=== PATIENT | male | born 1955 | race Caucasian/White ===

== ENCOUNTER 2024-02-29 23:51 | Inpatient (IN) | payer MEDICARE, BC, SELFPAY ==
[2024-02-29 22:14] VITALS: BP 180/98
[2024-02-29 22:30] VITALS: BMI 35.2
[2024-02-29 22:48] VITALS: BP 163/89
[2024-02-29 22:48] LABS: % Basophils 0.5 % (0-2); % Eosinophils 2.7 % (0-6); % Immature Granulocytes 0.4 % (0-0.5); % Lymphocytes 27.4 % (20.5-51.1); % Monocytes 7.1 % (1.7-9.3); % Neutrophils 61.9 % (42.2-75.2); Absolute Basophils 0.1 10^3/uL (0-0.2); Absolute Eosinophils 0.3 10^3/uL (0-0.7); Absolute Lymphocytes 2.5 10^3/uL (1.2-3.4); Absolute Monocytes 0.7 10^3/uL (0.1-0.6); Absolute Neutrophils 5.7 10^3/uL (1.4-6.5); Hematocrit 42.6 % (39.0-52.0); Hemoglobin 14.8 g/dL (13.0-18.0); Mean Corp Hgb Conc. 34.7 g/dL (33.0-37.0); Mean Corpuscular Hgb 28.8 pg (27.0-31.0); Mean Platelet Volume 9.7 fL (7.4-10.4); Nucleated Red Blood Cells % 0 % (-); Platelet Count 261 10^3/uL (130-400); Red Blood Cell Count 5.13 10^6/uL (4.70-6.10); Red Cell Dist. Width 13.8 % (11.5-14.5); White Blood Cell Count 9.3 10^3/uL (4.8-10.8)
[2024-02-29] MEDS: LOPRESSOR 5 MG IV (22:49)
--- NOTE | 2024-02-29 22:50 | ED.GENMED ---
Addendum entered and electronically signed by Nadeem Sesay DO 03/01/24 01:08:
CRITICAL CARE STATEMENT: A total of 33 minutes of critical care time was provided for this patient. This includes management of unstable vital signs, evaluation of the patient at bedside, reviewing the patient's pertinent medical records discussion
with EMS providers and patient's family in addition to discussion with consultants, review of old EKGs and review of pertinent medical records. This time with separate from time utilized to perform the aforementioned documented procedures
Original Note:
History of Present Illness
General
Chief Complaint: Chest Pain
Source: patient, records and spouse
Exam Limitations: none
Time Seen by Provider: 02/29/24 22:23
Travel History
Have you had any contact with someone who has COVID-19?: No
Do you have any symptoms of coronavirus? Fever > 100 degrees, chills, cough, shortness of breath, sore throat, loss of taste or smell, muscle aches, or headache?: No
History of Present Illness
History of Present Illness:
69-year-old male history of CAD followed by Dr. Freed accompanied by his
Last catheterization apparently had no vessels amenable for stenting had collaterals started on oral Imdur 30 mg was doing pretty well for few months and for the past month or so he had increasing chest pain and dyspnea with any exertion also at
rest, became more severe the past 2 days taking quite a bit of nitroglycerin to become chest pain-free 3 yesterday 3-4 today still having some mild pain into his shoulders he feels short of breath does have 10 pound weight gain has had leg edema not
on a diuretic
Past History
Past History
ED Past Medical History: CAD and HTN
ED Past Surgical History: Cardiac
Social History
Tobacco: Non-smoker
Alcohol: None
Drug: None
Personal:
Living: with family
Employment: Retired
Review of Systems
Review of Systems
All Other Systems: Not applicable
Constitutional: Reports weight gain; Denies fever or fatigue
EENT: Reports no symptoms
Respiratory: Reports trouble breathing
Cardiac: Reports chest pain
ABD/GI: Reports no symptoms
: Reports no symptoms
Musculoskeletal: Reports no symptoms
Skin: Reports no symptoms
Neurological: Reports no symptoms
Endocrine: Reports no symptoms
Hematologic/Lymphatic: Reports no symptoms
Phy Exam
Physical Exam
Physical Exam:
Physical Exam
General: Slightly dyspneic appearing male
Neck: No jaundice
Heart: s1/s2 regular rate and rhythm, no murmur. equal radial pulses.
Lungs: no acute respiratory distress. clear bilaterally
Abdomen: Nontender
Neuro: alert and oriented. no focal neurological deficits
Skin: no rash
Psychiatric: well kept. interactive and cooperative
Extremities: Trace edema no calf Pain
Scores
Heart Score for Chest Pain Patients
STEMI patient?: No
History: Highly Suspicious
ECG: Significant ST-Depression
Age: >/= 65 years
Risk Factors: >/= 3 Risk Factors or History of CAD
Troponin: >1 - <3 x Normal Limit
Heart Score for Chest Pain Patients: 9
Heart Score Risk: 72.7 % MACE over next 6 weeks
Course
Orders/Labs/Results
Orders:
Orders
02/29/24 22:13
Electrocardiogram (*1) Urgent
Reason for Study: Chest Pain
EKG- Treatment ONCE
02/29/24 22:43
CMP [Comprehensive Metabolic Panel] Urgent
Complete Blood Count/With Diff Urgent
NT-proBNP Urgent
Comment: ADD ON
Troponin I Urgent
02/29/24 22:45
Add On- LAB Urgent
Tests Added?: pBNP
Nitroglycerin Sublingual [Nitrostat (Sublingual)] 0.4 mg SL [id number] PRN
CR Chest Portable - 1 View Urgent
Comment:
Reason For Exam: sob
Reason Study Needs to be Portable: Patient Unstable
02/29/24 22:46
Metoprolol [Lopressor] 5 mg IV NOW STA
02/29/24 23:14
Heparin 4,000 units IV NOW STA
02/29/24 23:15
Heparin 06045 Units/250 ml 25,000 units in 250 ml IV PER PROTOCOL
Weight to be used for heparin protocol in kilograms (kg):: 107.9
Protocol:: Cardiac Tx/Acute Coronary
PTT Goal Range to be used:: PTT 73 to 111 seconds
Order type:: Initial
INITIAL Infusion Dose (UNITS/KG/hr) & then follow protocol:: 12 units/kg/hr
Infusion Dose in UNITS/hr & then follow protocol (UNITS/hr):: 1,000
INFUSION RATE in mL/hr & then follow protocol (mL/hr):: 10
PTT less than or equal to 64 seconds:: Increase rate by 200 units/hr (+ 2 mL/hr)
PTT 64.1 to 72.9 seconds:: Increase rate by 100 units/hr (+ 1 mL/hr)
PTT 73 to 111 seconds:: Target Range. No change in rate.
PTT 111.1 to 130.9 seconds:: Decrease rate by 100 units/hr (- 1 mL/hr)
PTT 131 to 199.9 seconds:: HOLD for 1 hr. Then decrease rate by 200 units/hr (- 2 mL/hr)
PTT greater than or equal to 200 seconds:: HOLD for 2 hrs & Notify Provider. Then decrease by 200 units/hr (-
2 mL/hr)
Lab follow-up:: Each change, PTT q6h until 2 consecutive are therapeutic. Then PTT
daily.
Nursing to Place Non Medication Order As Directed
Physician Order: PTT 6 hours after initial start of Heparin infusion
Above order entered?: Yes
02/29/24 23:19
PTT Urgent
Comment: Obtain baseline before beginning heparin infusion if not already collected
02/29/24 23:23
Electrocardiogram (*1) Urgent
Reason for Study: Chest Pain
EKG- Treatment ONCE
02/29/24 23:41
CARDIOLOGY CONSULT Urgent
Consulting Provider: Daniel Echavarria
Was physician already notified: Yes
02/29/24 23:45
Admit/Transfer Patient As Directed
Co-Sign Provider:
Level of Care: Inpatient admission
Assign to:: IVU
Physician / Group: alesha
Diagnosis: nstemi
Reason for Hospitalization: nstemi
Expected length of stay greater than two midnights?: Yes
ELOS- Estimated Length of Stay in days: 2
I certify the patient meets the requirements for IP care: Yes
Code Status As Directed
Resuscitation Status: Full Code
03/01/24 05:45
PTT Routine
Abnormal Lab Results
02/29/24
22:43
Absolute Monos (auto) 0.7 H 10^3/uL
(0.1-0.6)
BUN 29 H mg/dl
(9-20)
Creatinine 1.4 H mg/dL
(0.7-1.3)
Glucose 126 H mg/dl
(70-99)
Troponin I 0.137 H* ng/ml
02/29/24 22:43
02/29/24 22:43
Vital Signs
Initial and Last Documented VS:
Initial Vital Signs
Temp Pulse Resp BP
97.7 F 84 22 180/98
02/29/24 22:14 02/29/24 22:14 02/29/24 22:14 02/29/24 22:14
Last Documented Vital Signs
Temp Pulse Resp BP
97.7 F 85 14 180/98
02/29/24 22:14 02/29/24 22:34 02/29/24 22:34 02/29/24 22:14
MDM/Problems Addressed
Differential Diagnosis Includes:
ACS accelerated angina, unstable angina, non-STEMI noncardiac causes
MDM/Problems Addressed:
Chest pain
Chronic conditions affecting care: CAD
Acute Exacerbation and/or Progression of Chronic Illness: CAD
*Radiology
Radiology exam reviewed: preliminary read by ED provider
*Pulse Oximetry
Patient hypoxic: no
*EKG
Interpreted by ED Provider?: Yes
Interpretation: abnormal
Comparison EKG: changes noted
Heart Rate: 112
Rate: tachycardiac
Rhythm: sinus
Ischemia: non-specific ST changes
*Psychiatric Secretary Interpretation
Rate: normal
Interpretation: normal
Heart Rate: 110
Rhythm: sinus
*Critical Care Note
Total Time (30-74mins, 75-104mins- exclusive of procedures): 33
Update Note
Update Note:
11:20 PM troponin noted now with 4 out of 10 chest pain with start nitrates and heparin
11:45 PM chest pain-free after 3 sublingual nitro, heparin has been ordered,
11:55 PM repeat EKG noted
ED Attending Note
-
Portions of this chart may have been created with voice recognition software.� Occasional wrong word or��sound alike� substitutions may have occurred due to the inherent limitations of voice recognition software.
Discharge Plan
Departure
Patient Disposition: Admit
Date of Disposition: 02/29/24
Time of Disposition: 23:46
Admit to: IVU
Presentation/result/management discussed w/ accepting MD/DO: Hospitalist
Patient with high blood pressure during this ER visit?: Yes
Condition: Fair
Discharge Problem:
ACS (acute coronary syndrome)
Interventions
Interventions:
*Risk Screen - Suicide Last Done: 02/29/24 22:14
*General Assessment Last Done: 02/29/24 22:30
*Neglect/Abuse Screening Last Done: 02/29/24 22:14
ED- Fall Risk Assessment Last Done: 02/29/24 22:30
*ED COVID-19 Vaccine History Last Done: 02/29/24 22:30
ED- Cardiac Assessment Last Done: 02/29/24 22:30
[2024-02-29 23:00] VITALS: BP 164/85
[2024-02-29 23:08] LABS: ALT (SGPT) 31 U/L (0-50); AST (SGOT) 33 U/L (17-59); Albumin 4.5 g/dl (3.5-5.0); Alkaline Phosphatase 73 U/L (38-126); Blood Urea Nitrogen 29 mg/dl (9-20); Calcium 9.3 mg/dl (8.4-10.2); Carbon Dioxide 25 mmol/L (22-30); Chloride 106 mmol/L (98-107); Estimated Creatinine Clearance 61 ml/min; Glucose 126 mg/dl (70-99); Potassium 4.4 mmol/L (3.5-5.1); Sodium 137 mmol/L (135-145); Total Bilirubin 0.4 mg/dl (0.2-1.3); Total Protein 7.6 g/dl (6.3-8.2); eGFR 54.75
[2024-02-29 23:13] LABS: NT-proBNP 347 pg/ml; Troponin I 0.137 ng/ml
[2024-02-29] MEDS: NITROSTAT (SUBLINGUAL) 0.400000000000000022 MG SL ×3 (23:20→23:38)
[2024-02-29] MEDS: HEPARIN 4000 UNITS IV (23:24)
[2024-02-29 23:32] VITALS: BP 145/79
[2024-02-29] MEDS: HEPARIN 25000 UNITS/250 ML IV (23:33)
[2024-02-29 23:37] LABS: APTT 28.3 Sec (23.4-35.0)
--- NOTE | 2024-02-29 23:53 | HPS.HSE ---
Family Physician
-
Family Physician: Bk Ron
Chief Complaint
-
chest pain
History of Present Illness
69-year-old male with past medical history of CAD with stent in 2008, hypertension, gout, hypothyroidism, GERD, presenting with chest pain. Over the past month he has had increasing chest pain and shortness of breath primarily with exertion. Pain
has become more frequent over the past 2 days requiring multiple doses of nitroglycerin per day to resolve the chest pain. He did have 10 pound weight gain in the past few months and some slight lower extremity edema. He did have some nausea and
sweating today.
He had stent placed in 2008 and another catheterization 2 years ago with CAD not amenable to stenting at that time.
He drinks a few beers 5 times a week. He does use marijuana sometimes. He denies smoking.
Family history is unknown.
Medical History
Past Medical History
Past Medical History: Reports Other ( CAD with stent in 2008, hypertension, gout, hypothyroidism, GERD)
Past Surgical History: Reports None
Social History
Tobacco: Non-smoker
Alcohol: Daily
Drug: Marijuana
Family History
Family History: Not pertinent
Allergies / Home Medications
Allergies reflects when Allergies were last updated in [employer]
Home Medications with original date entered in [employer]
Allergy/Medication List:
Allergies
Allergy/AdvReac Type Severity Reaction Status Date / Time
No Known Allergies Allergy Verified 11/25/22 14:27
Home Medications
allopurinol 100 mg tablet 100 mg PO HS 02/29/24
amlodipine 5 mg tablet 5 mg PO HS 02/29/24
aspirin 81 mg tablet,delayed release 81 mg PO HS 02/29/24
isosorbide mononitrate 60 mg tablet,extended release 24 hr 60 mg PO HS 02/29/24
levothyroxine 50 mcg tablet 50 mcg PO DAILY 02/29/24
metoprolol succinate 25 mg tablet,extended release 24 hr 25 mg PO HS 02/29/24
omega 5-ykm-tju-fish oil 1,200 mg (144 mg-216 mg) capsule (Fish Oil) 1 cap PO HS 02/29/24
pantoprazole 40 mg tablet,delayed release 40 mg PO HS 02/29/24
rosuvastatin 40 mg tablet 40 mg PO HS 02/29/24
Review of Systems
-
History Source: Patient
A 12 point ROS was completed and negative except as noted: Yes
Constitutional: Reports No Symptoms
EENT: Reports No Symptoms
Respiratory: Reports No Symptoms
Cardiac: Reports See HPI
Abdomen/GI: Reports No Symptoms
: Reports No Symptoms
Musculoskeletal: Reports No Symptoms
Skin: Reports No Symptoms
Neurological: Reports No Symptoms
Endocrine: Reports No Symptoms
Hematologic/Lymphatic: Reports No Symptoms
Psych: Reports No Symptoms
Physical Exam
Vital Signs
Vital Signs
Temp Pulse Resp BP
97.7 F 85 14 180/98
02/29/24 22:14 02/29/24 22:34 02/29/24 22:34 02/29/24 22:14
Physical Exam
General: Well Developed, Well Nourished and No Apparent Distress
HEENT: NormoCephalic, Moist mucous membranes and Atraumatic
Respiratory: Clear
Cardiac: S1/S2 and Regular Rhythm; No Murmur or Rub
GI: Soft, Non Tender, Non Distended and Normal Bowel Sounds; No Organomegaly
Rectal: Deferred by Provider
Musculoskeletal: No Clubbing, No Cyanosis and No Edema
Skin: No Rash
Neuro: Nonfocal/grossly intact
Laboratory Results
-
02/29/24 22:43
02/29/24 22:43
Laboratory Results
APTT 28.3 Sec (23.4-35.0) 02/29/24 23:19
Total Bilirubin 0.4 mg/dl (0.2-1.3) 02/29/24 22:43
AST 33 U/L (17-59) 02/29/24 22:43
ALT 31 U/L (0-50) 02/29/24 22:43
Alkaline Phosphatase 73 U/L (38-126) 02/29/24 22:43
Troponin I 0.137 ng/ml H* 02/29/24 22:43
Data Reviewed
-
Lab Data: Labs Reviewed by me
Old Records: Reviewed
Impression/Plan
-
IMPRESSION:
PLAN:
# NSTEMI
# History of CAD with stent in 2008
-EKG shows normal sinus rhythm, incomplete left bundle branch block with repolarization abnormality, LVH,
-Troponin 0.137
-Continue to trend
-Continue aspirin
-Heparin drip
-Continue isosorbide mononitrate
-Continue metoprolol
-Continue statin
-N.p.o. for potential catheterization
-Minimal chest pain currently, if worsening chest pain then start nitro drip
-Chest x-ray appears unremarkable, report pending
-Cardiac BNP 340
-Cardiology consulted
# Acute kidney injury versus CKD
-No recent BMP available
-Suspect CKD, but try gentle IV fluids
-Continue to monitor
Essential hypertension
-Continue amlodipine
Gout
-Continue allopurinol
Hypothyroidism
-Continue levothyroxine
GERD
-Continue Protonix
Daily alcohol use
-Monitor for withdrawal
Marijuana user
Full code
DVT prophylaxis�heparin drip
N.p.o.
[2024-02-29 23:55] VITALS: BP 145/65
[2024-03-01] VITALS (28 sets, daily range): BP systolic 107–166; BP diastolic 60–101; PULSE 63–81; BMI 34.5
[2024-03-01] MEDS: MORPHINE SULFATE 4 MG IV (00:11)
[2024-03-01] MEDS: LOW STRENGTH ASPIRIN 324 MG PO (00:56)
[2024-03-01] MEDS: NITROGLYCERIN PREMIX 250 IV (00:57)
[2024-03-01] MEDS: NSS 1000 IV ×2 (02:18→11:20)
--- NOTE | 2024-03-01 02:25 | PTCARENOTE ---
Patient admitted to IVU room 2250, assisted to bed. Heparin and nitro IV infusing per MAR. Pain in chest 1 out 10, unchanged. NSR on telemetry, denies shortness of breath. VSS. NPO for possible heart cath today,call tamayo in reach
[2024-03-01 05:56] LABS: % Basophils 0.7 % (0-2); % Immature Granulocytes 0.3 % (0-0.5); % Lymphocytes 34.8 % (20.5-51.1); % Monocytes 8.3 % (1.7-9.3); % Neutrophils 52.9 % (42.2-75.2); Absolute Basophils 0.1 10^3/uL (0-0.2); Absolute Eosinophils 0.3 10^3/uL (0-0.7); Absolute Lymphocytes 3.5 10^3/uL (1.2-3.4); Absolute Monocytes 0.8 10^3/uL (0.1-0.6); Absolute Neutrophils 5.3 10^3/uL (1.4-6.5); Hematocrit 40.7 % (39.0-52.0); Hemoglobin 13.4 g/dL (13.0-18.0); Mean Corp Hgb Conc. 32.9 g/dL (33.0-37.0); Mean Corpuscular Hgb 28.2 pg (27.0-31.0); Mean Corpuscular Volume 85.5 fL (80.0-94.0); Mean Platelet Volume 10.2 fL (7.4-10.4); Nucleated Red Blood Cells % 0 % (-); Platelet Count 227 10^3/uL (130-400); Red Blood Cell Count 4.76 10^6/uL (4.70-6.10); Red Cell Dist. Width 13.7 % (11.5-14.5); White Blood Cell Count 10.1 10^3/uL (4.8-10.8)
[2024-03-01 06:31] LABS: ALT (SGPT) 29 U/L (0-50); AST (SGOT) 53 U/L (17-59); Albumin 3.9 g/dl (3.5-5.0); Alkaline Phosphatase 60 U/L (38-126); Blood Urea Nitrogen 30 mg/dl (9-20); Calcium 8.9 mg/dl (8.4-10.2); Carbon Dioxide 22 mmol/L (22-30); Chloride 106 mmol/L (98-107); Estimated Creatinine Clearance 77 ml/min; Glucose 113 mg/dl (70-99); Potassium 4.5 mmol/L (3.5-5.1); Sodium 138 mmol/L (135-145); Total Bilirubin 0.6 mg/dl (0.2-1.3); Total Protein 6.8 g/dl (6.3-8.2); eGFR > 60.00
--- NOTE | 2024-03-01 08:07 | CON.CAR ---
Consultation
Consultation Request
Date/Time Consultation Requested: February 29, 2024, 2350
Date/Time Consultation Performed: March 01, 2024, 7:15 AM
Requesting Provider: Hospitalist
Performing Provider: Daniel Echavarria
Reason for Consultation: NSTEMI
Medical History
-
Chief Complaint: Chest pain
History of Present Illness:
61-year-old male with past medical history of CAD and stenting in 2008, hypertension, gout, hypothyroidism, GERD, who is presenting today with chest pain. He tells me that over the last 3 to 4 weeks he has noticed increasing frequency of chest
pain. This has been associated with exertion or stress. It was resolved with nitroglycerin. However, over the last couple of days the chest pain has become much more frequent even at rest and is not necessarily resolved with an initial
nitroglycerin. He has associated shortness of breath. The chest pain is central in location pressure and squeezing-like substernally. Because of this he had presented to the emergency room.
In the emergency room troponin was elevated and initial ECG showed normal sinus rhythm with LVH QRS widening and repolarization. He was given aspirin and started on heparin drip and admitted to the hospitalist service.
Past Medical History
Past Medical History: Other (CAD and stenting in 2008, hypertension, gout, hypothyroidism, GERD)
Past Surgical History: None
Social History
Tobacco: Non-Smoker
Alcohol: Daily
Drug: Marijuana
Family History
Family History: Reviewed & Not Pertinent
Allergies / Home Medications
Allergy/AdvReac Type Severity Reaction Status Date / Time
No Known Allergies Allergy Verified 11/25/22 14:27
�Medication �Instructions �Recorded �Confirmed �Type
allopurinol 100 mg tablet 100 mg PO HS 02/29/24 02/29/24 History
amlodipine 5 mg tablet 5 mg PO HS 02/29/24 02/29/24 History
aspirin 81 mg tablet,delayed 81 mg PO HS 02/29/24 02/29/24 History
release
isosorbide mononitrate 60 mg 60 mg PO HS 02/29/24 02/29/24 History
tablet,extended release 24 hr
levothyroxine 50 mcg tablet 50 mcg PO DAILY 02/29/24 02/29/24 History
metoprolol succinate 25 mg 25 mg PO HS 02/29/24 02/29/24 History
tablet,extended release 24 hr
omega 6-for-ywb-fish oil 1,200 mg 1 cap PO HS 02/29/24 02/29/24 History
(144 mg-216 mg) capsule (Fish Oil)
pantoprazole 40 mg tablet,delayed 40 mg PO HS 02/29/24 02/29/24 History
release
rosuvastatin 40 mg tablet 40 mg PO HS 02/29/24 02/29/24 History
Review of Systems
-
All other systems: Negative unless noted
Physical Exam
Vital Signs
Temp Pulse Resp BP Pulse Ox
97.9 F 66 16 145/75 94
03/01/24 07:16 03/01/24 07:45 03/01/24 07:16 03/01/24 07:15 03/01/24 07:16
Lab Results
03/01/24 05:44
03/01/24 05:44
Troponin I Cancelled 03/01/24 13:34
Buu-T-[id number] Pept 347 pg/ml 02/29/24 22:43
Physical Exam
General: Well Developed and Well Nourished
HEENT: Normocephalic
Respiratory: Clear and Non Labored Respirations
Cardiac: S1/S2 and Regular Rhythm
GI: Soft, Non Tender, Non Distended and Normal Bowel Sounds
Musculoskeletal: No Clubbing, No Cyanosis and No Edema
Skin: Warm and Dry
Neuro: AO x 3
Psych: Calm
Impression / Plan
-
69-year-old male with past medical history of CAD and stenting in 2008, hypertension, gout, hypothyroidism, GERD who is here today with chest pain elevated troponin consistent with NSTEMI.
NSTEMI
-N.p.o. nitro as needed for chest pain, coronary angiography today
-Aspirin 81 mg daily already received load, heparin drip
-Continue statin
-Continue Imdur metoprolol
-Update TTE
Hypertension
-Continue amlodipine
Hypothyroidism
GERD
Gout
Daily alcohol use
Marijuana use
Data Reviewed
-
EKG: Tracing Personally Visualized and interpreted (NSR LVH )
Labs: Labs Reviewed by me
[2024-03-01] MEDS: SYNTHROID 50 MCG PO (08:37)
[2024-03-01] MEDS: ASPIR LOW (ENTERIC COATED) 81 MG PO (09:17)
--- NOTE | 2024-03-01 09:33 | PTCARENOTE ---
Assumed care of pt from night RN. Pt received lying in bed. Ox3. VSS, CM shows NSR 60-70's, POX 94% on RA. Ntg running at 25 mcg/min concurrently with Heparin which is running at 1200 units per hr through LAC. NS running at 80ml's/hr through RH.
ASA 81 mg given this am per CCL RN. Pt awaiting CCL.
[2024-03-01 10:30] LABS: ACT-LR - POC 247 Seconds (116-155)
[2024-03-01 10:40] LABS: ACT-LR - POC 289 Seconds (116-155)
--- NOTE | 2024-03-01 10:56 | ITS.CL.CATH ---
[facility] - Catheterization
Cardiac Catheterization
Procedure Report:
CARDIAC CATHETERIZATION REPORT
Date of Procedure: 03/01/2024
Referring: Daniel Echavarria MD
Indication: ACS/non-STEMI
HEMODYNAMIC DATA
AO: 135/77
LV: 135/16
LEFT VENTRICULOGRAPHY: Mild mid inferior hypokinesis with otherwise normal left ventricular wall motion with EF 58%
CORONARY ANGIOGRAPHY
Dominance: Right
Left Main: Mild luminal disease
LAD: Diffuse mild luminal disease throughout the LAD without any significant areas of focal stenosis
Circumflex: The circumflex is occluded at its origin. There is retrograde left to left collateral filling of the circumflex system to include a medium to large OM1 and a medium sized OM 2 as well as a small OM 3. The appearance of the circumflex
is unchanged compared with the prior study from 2021.
RCA: Large dominant vessel with moderate to severe calcification in the proximal, mid, and distal vessel. There is 30-40% stenosis in the mid RCA proximal to the crux. There is a high degree of angulation at the bifurcation of the large PDA and AV
groove branch which supplies a large right posterolateral system. There is a new 90% stenosis (versus 2021) in the AV groove proximal to the takeoff of the small RPL 1. The lesion has the angiographic appearance of a acute plaque rupture. The RCA
terminates with a large RPL 2 and RPL 3 branches.
Angioplasty: At the conclusion the diagnostic study we proceeded with angioplasty to treat the culprit 90% right AV groove branch stenosis. Due to the significant calcification and angulation throughout the RCA, we were prepared for marx to get a
stent all the way to the lesion. An AL 0.75 guide catheter was used to maximize backup support given the upsloping nature of the RCA. A BMW wire was advanced easily into the distal RCA but could not be manipulated into the right AV groove branch
which originated from a very acute angle. The wire was parked in the PDA both to work as a eldon wire for delivery of balloon and device through the mid to distal RCA and also to straighten the proximal RCA curve which it did nicely. A hydrophilic
whisper wire was then advanced and passed into the AV groove branch and across the lesion without significant difficulty. Angioplasty with a 2.5 x 15 trek dilated to 12 sorin was followed by placement of a 2.75 x 22 [place] CRISTI deployed at 14
sorin then postdilated with a 2.5 NC trek to 17 sorin. The final angiographic result was outstanding with no residual stenosis. There were no procedural complications.
Closure Device: None-the procedure was performed via the right radial artery. The Arya's test was normal prior to the procedure.
Radiation (mGy): 740
DAP (cm2.Gy): 44.5
Fluoroscopy time: 6.8 min
CONCLUSIONS
1: ACS/non-STEMI presentation (troponin 2)
2: Mild inferior hypokinesis with EF 58%
3. Multivessel CAD as described-the ostial circumflex occlusion is old. The culprit for his non-STEMI is a plaque rupture in the right AV groove branch proximal to the takeoff of the first right posterolateral branch.
4. Successful stenting of right AV groove branch lesion using 2.75 x 22 [place] CRISTI with outstanding final result
5. Recommend dual antiplatelet therapy for minimum 12 months and continued efforts at risk factor modification
Copy to: Noam Freed MD, Bk Ron MD
Noam Freed MD, [facility], [facility]
--- NOTE | 2024-03-01 11:32 | PTCARENOTE ---
Assumed care of pt upon tsf from CCL post stent insertion. Pt arrives awake and alert, Ox3, VSS, CM shows NSR 60's, POX 88-90, 2 liters n/c applied. Right radial site with radial band intact. CMS WNL. Protocol IV infusing at 159 ml/hr x 5 hours.
Heparin and NTG drips off. Movement restrictions reviewed with pt.
--- NOTE | 2024-03-01 14:09 | CM ---
spoke to pt in room, he is prev indep, lives with his in a 2 story home with 2 steps to enter. he denies any dc planning needs or dme's. plan is for dc to home when medically stable.
--- NOTE | 2024-03-01 14:46 | W.PN.HOSP.TC ---
Today's Communication/Plan
-
DAPT
Medical optimization
HSQ
Monitor Scr with Fluids s/p cath
ECHO
Assessment / Plan
Assessment / Plan
Physical Exam
General: Well Developed, Well Nourished and No Apparent Distress
HEENT: NormoCephalic, Moist mucous membranes and Atraumatic
Respiratory: Clear
Cardiac: S1/S2 and Regular Rhythm; No Murmur or Rub
GI: Soft, Non Tender, Non Distended and Normal Bowel Sounds; No Organomegaly
Rectal: Deferred by Provider
Musculoskeletal: No Clubbing, No Cyanosis and No Edema
Skin: No Rash
Neuro: Nonfocal/grossly intact
PLAN:
# NSTEMI
# History of CAD with stent in 2008
- culprit for his non-STEMI is a plaque rupture in the right AV groove branch proximal to the takeoff of the first right posterolateral branch.
-Successful stenting of right AV groove branch lesion
-dual antiplatelet therapy for minimum 12 months and continued efforts at risk factor modification
-Continue isosorbide mononitrate
-Continue metoprolol
-Continue statin
-F/u ECHO
--Cardiology on board
# Acute kidney injury versus CKD
-improving
-cont to monitor with fluids, jerad with C
Essential hypertension
-Continue amlodipine
Gout
-Continue allopurinol
Hypothyroidism
-Continue levothyroxine
GERD
-Continue Protonix
Daily alcohol use
-Monitor for withdrawal
Marijuana user
Full code
DVT prophylaxis�HSQ
Total time spent on today's encounter was 50 minutes which included time spent in counseling the patient/family regarding diagnosis and treatment plan as listed above, goals of care, and symptom management. Case was discussed with nursing staff,
specialists, and care coordinators/case management. All labs and imaging personally reviewed by me. Remainder the time spent in detailed review of previous records, lab data, imaging, and other medical provider documentation.
Anticipated Discharge: 24 - 48 hours
Subjective/Interval History
-
Date of Service: March 01, 2024
No acute events, planning for left heart cath today
Objective Data
-
Labs:
Laboratory Results
03/01/24 03/01/24
05:44 12:00
WBC 10.1
Hgb 13.4
Hct 40.7
Plt Count 227
APTT 38.0 H Cancelled
Sodium 138
Potassium 4.5
Chloride 106
Carbon Dioxide 22
BUN 30 H
Creatinine 1.1
Glucose 113 H
Calcium 8.9
Total Bilirubin 0.6
AST 53
ALT 29
Alkaline Phosphatase 60
Vital Signs:
Vital Signs
Temp Pulse Resp BP Pulse Ox
98.2 F 63 16 147/70 92
03/01/24 11:12 03/01/24 11:15 03/01/24 11:12 03/01/24 11:15 03/01/24 11:12
I&O
02/29/24 03/01/24 03/02/24
06:59 06:59 06:59
Intake Total 800 / 800
Balance 800 / 800
Review of Systems
-
History Source: Patient
All other systems: Not reviewed unless documented
Data Reviewed
-
Diagnostic Radiology: Image personally visualized and interpreted and Report Reviewed by me
Medical Tests (Nuc Med, Echo etc): Report Reviewed by me
Labs: Labs Reviewed by me
--- NOTE | 2024-03-01 15:40 | CARDSERVLU ---
Echocardiogram with Lumason completed after protocol screening completed. Allergies verified.
Patent IV site: __R hand___
IV site flushed with 0.9% NaCl pre and post administration.
Diluted bolus method utilized to enhance visualization of ventricular benz.
Total volume given: __2.5__ mL
Patient tolerated all procedures well without complications.
[2024-03-01] MEDS: NSS IV (15:46)
[2024-03-01] MEDS: PROTONIX 40 MG PO (22:25)
[2024-03-01] MEDS: CRESTOR 40 MG PO (22:25)
[2024-03-01] MEDS: TOPROL XL 25 MG PO (22:25)
[2024-03-01] MEDS: NORVASC 5 MG PO (22:26)
[2024-03-01] MEDS: IMDUR (EXTENDED RELEASE) 60 MG PO (22:26)
[2024-03-01] MEDS: ZYLOPRIM 100 MG PO (22:26)
--- NOTE | 2024-03-02 01:49 | PTCARENOTE ---
Pt. has no complaints of chest pain/discomfort this shift. VSS, NSR on the monitor. Right radial cath site dressing CDI with no S&S hematoma, circulation intact. Pt. currently sleeping.
[2024-03-02 03:28] VITALS: BP 120/65
[2024-03-02 03:53] LABS: Hematocrit 38.1 % (39.0-52.0); Hemoglobin 13.2 g/dL (13.0-18.0); Mean Corp Hgb Conc. 34.6 g/dL (33.0-37.0); Mean Corpuscular Hgb 28.6 pg (27.0-31.0); Mean Corpuscular Volume 82.5 fL (80.0-94.0); Mean Platelet Volume 10.1 fL (7.4-10.4); Platelet Count 214 10^3/uL (130-400); Red Blood Cell Count 4.62 10^6/uL (4.70-6.10); White Blood Cell Count 9.5 10^3/uL (4.8-10.8)
[2024-03-02 04:10] LABS: Blood Urea Nitrogen 19 mg/dl (9-20); Calcium 8.6 mg/dl (8.4-10.2); Carbon Dioxide 21 mmol/L (22-30); Chloride 109 mmol/L (98-107); Estimated Creatinine Clearance 94 ml/min; Glucose 108 mg/dl (70-99); Potassium 4.1 mmol/L (3.5-5.1); Sodium 135 mmol/L (135-145); eGFR > 60.00
[2024-03-02] MEDS: SYNTHROID 50 MCG PO (06:31)
[2024-03-02 07:39] VITALS: BP 126/50
--- NOTE | 2024-03-02 08:34 | PTCARENOTE ---
Rec'd pt AAOx3 w/no c/o CP or SOB. VS stable this AM w/HR in the upper 50's & pt SB on telemetry monitoring. Pt w/ R radial cath site w/dressing C/D/I w/no signs or symptoms of bleeding or hematoma. Pt w/call tamayo within reach & plan of care ongoing.
[2024-03-02] MEDS: PLAVIX PO (09:02)
--- NOTE | 2024-03-02 09:21 | W.PN.CD ---
Today's Communication / Plan
-
- No cath complications
- OK for home
- F/u arranged
Impression / Plan
-
69-year-old male with past medical history of CAD and stenting in 2008, hypertension, gout, hypothyroidism, GERD who is here today with chest pain elevated troponin consistent with NSTEMI.
NSTEMI, peak trop 8.4, normal LVEF
- Culprit vessel stented
- No cath complications
- OK for home
- F/u arranged
Hypertension
Hypothyroidism
GERD
Gout
Daily alcohol use
Marijuana use
Physical Exam
Vital Signs/Labs
Vital Signs
Temp Pulse Resp BP Pulse Ox
97.6 F 72 18 126/50 94
03/02/24 07:00 03/02/24 07:39 03/02/24 07:00 03/02/24 07:39 03/02/24 07:00
03/01/24 03/02/24 03/03/24
06:59 06:59 06:59
Actual Weight 106 kg
03/02/24 03:33
03/02/24 03:33
APTT Cancelled 03/01/24 12:00
02/29/24
22:43
Osz-M-Nzuvsbmienm Pept 347
LAB Results
02/29/24 03/01/24 03/01/24
22:43 01:34 05:44
Troponin I 0.137 H* Cancelled 2.700 H* D
03/01/24 03/01/24 03/01/24
07:34 12:05 13:34
Troponin I Cancelled 7.810 H* D Cancelled
03/01/24 03/01/24
17:56 22:47
Troponin I 8.400 H* 5.810 H* D
Physical Exam
Constitutional: No acute distress
EENT: Anicteric
Cardiovascular: Rhythm & rate is regular and Pedal edema is absent
Respiratory: Respiratory effort normal and Lungs clear to auscul.
GI: Soft and Distention absent
Neuro/Psych: AO x 3
Data Reviewed
-
Date of Service: March 02, 2024
[2024-03-02] MEDS: PLAVIX 75 MG PO (10:13)
--- NOTE | 2024-03-02 11:13 | W.PN.HOSP.TC ---
Addendum entered and electronically signed by Pablo Lawrence MD 03/03/24 15:25:
[id number]
Original Note:
Today's Communication/Plan
-
DAPT 12 months
f/u cards, pcp outpatient
Assessment / Plan
Assessment / Plan
Physical Exam
General: Well Developed, Well Nourished and No Apparent Distress
HEENT: NormoCephalic, Moist mucous membranes and Atraumatic
Respiratory: Clear
Cardiac: S1/S2 and Regular Rhythm; No Murmur or Rub
GI: Soft, Non Tender, Non Distended and Normal Bowel Sounds; No Organomegaly
Rectal: Deferred by Provider
Musculoskeletal: No Clubbing, No Cyanosis and No Edema
Skin: No Rash
Neuro: Nonfocal/grossly intact
PLAN:
# NSTEMI
# History of CAD with stent in 2008
- culprit for his non-STEMI is a plaque rupture in the right AV groove branch proximal to the takeoff of the first right posterolateral branch.
-Successful stenting of right AV groove branch lesion
-dual antiplatelet therapy for minimum 12 months and continued efforts at risk factor modification
-Continue isosorbide mononitrate
-Continue metoprolol
-Continue statin
-F/u ECHO: LV ejection fraction is 60-65% no regional wall motion abnormalities are seen
--Cardiology on board
# Acute kidney injury versus CKD
resolved
Essential hypertension
-Continue amlodipine
Gout
-Continue allopurinol
Hypothyroidism
-Continue levothyroxine
GERD
-Continue Protonix
Daily alcohol use
-Monitor for withdrawal
Marijuana user
Full code
DVT prophylaxis�HSQ
More than 30 minutes spent in discharge including
Final examination of the patient
Summarizing hospital stay
Instructions for continuing care to all relevant caregivers
Preparation of discharge records, prescriptions, and referral forms
Total time spent (35 in minutes):
Anticipated Discharge: Today
Subjective/Interval History
-
Date of Service: March 02, 2024
No acute events status post PCI yesterday
Objective Data
-
Labs:
Laboratory Results
03/02/24
03:33
WBC 9.5
Hgb 13.2
Hct 38.1 L
Plt Count 214
Sodium 135
Potassium 4.1
Chloride 109 H
Carbon Dioxide 21 L
BUN 19
Creatinine 0.9
Glucose 108 H
Calcium 8.6
Vital Signs:
Vital Signs
Temp Pulse Resp BP Pulse Ox
97.6 F 72 18 126/50 94
03/02/24 07:00 03/02/24 07:39 03/02/24 07:00 03/02/24 07:39 03/02/24 07:00
I&O
03/01/24 03/02/24 03/03/24
06:59 06:59 06:59
Intake Total 800 / 800
Balance 800 / 800
Review of Systems
-
History Source: Patient
All other systems: Not reviewed unless documented
Data Reviewed
-
Diagnostic Radiology: Image personally visualized and interpreted and Report Reviewed by me
Medical Tests (Nuc Med, Echo etc): Report Reviewed by me
Labs: Labs Reviewed by me
--- NOTE | 2024-03-02 11:16 | W.DS.TRANS ---
DC Summary - [employer] Consult[employer]
-
Discharge Instructions:
Discharge Diagnosis/Procedures NSTEMI
Angioplasty with stent to right posterior
lateral artery
Diet Low Cholesterol,Low Fat
Driving Restrictions No driving for 24 hours
Bathing Restrictions None
Other Services Cardiac Rehab
Instructions:
Stand-Alone Forms: DC Instructions- Cath/EP Lab
Changes to Home Medications: Yes
Discharge Medications:
DC Medications w/original date entered in [facility]
allopurinol 100 mg tablet 100 mg PO HS Gout 02/29/24
amlodipine 5 mg tablet 5 mg PO HS Blood Pressure 02/29/24
aspirin 81 mg tablet,delayed release 81 mg PO HS Blood Clot Prevention/Tx 02/29/24
isosorbide mononitrate 60 mg tablet,extended release 24 hr 60 mg PO HS Heart Disease/Condition 02/29/24
levothyroxine 50 mcg tablet 50 mcg PO DAILY Thyroid 02/29/24
metoprolol succinate 25 mg tablet,extended release 24 hr 25 mg PO HS Blood Pressure 02/29/24
omega 2-vsj-pvh-fish oil 1,200 mg (144 mg-216 mg) capsule (Fish Oil) 1 cap PO HS Supplement 02/29/24
pantoprazole 40 mg tablet,delayed release 40 mg PO HS Gastrointestinal Issue 02/29/24
rosuvastatin 40 mg tablet 40 mg PO HS High Cholesterol 02/29/24
clopidogrel 75 mg tablet 75 mg PO DAILY 30 days #30 tabs 03/02/24
Home Medication Changes
clopidogrel 75 mg tablet 75 mg PO DAILY 30 days #30 tabs 03/02/24
Pending Results: No
--- NOTE | 2024-03-02 11:18 | CM ---
CM following for DC planning needs.
Met w/ patient at bedside. He is anticipating DC home today. Patient has no anticipated DC needs.
Plan is for home, no needs.
[2024-03-02 12:26] VITALS: BP 146/65
--- NOTE | 2024-03-02 13:18 | PTCARENOTE ---
Pt D/C'd to home w/personal belongings including tablet, cell phone & case finisher. Pt's IV lines D/C'd & telemetry pack removed. Pt transported out via wheelchair by hospital volunteer w/ providing transportation.
== END 2024-03-02 13:47 | disposition home or self-care (01) | DRG 322 ==
LOC: IVU 23:51
PROVIDERS: Internal Medicine Cardiovascular Disease; Nurse Practitioner Adult Health; ADMITTING PHYSICIAN Hospitalist; ATTENDING PHYSICIAN Internal Medicine; CONSULT PHYSICIAN Internal Medicine Cardiovascular Disease; EMERGENCY PHYSICIAN Emergency Medicine; FAMILY PHYSICIAN Family Medicine
PROC: 027034Z Dilation of Coronary Artery, One Artery with Drug-eluting Intraluminal Device, Percutaneous Approach (ICD-10-PCS; 2024-03-01)
PROC: B2111ZZ Fluoroscopy of Multiple Coronary Arteries using Low Osmolar Contrast (ICD-10-PCS; 2024-03-01)
PROC: 4A023N7 Measurement of Cardiac Sampling and Pressure, Left Heart, Percutaneous Approach (ICD-10-PCS; 2024-03-01)
PROC: B2151ZZ Fluoroscopy of Left Heart using Low Osmolar Contrast (ICD-10-PCS; 2024-03-01)
DX: I21.4 Non-ST elevation (NSTEMI) myocardial infarction (principal); N17.9 Acute kidney failure, unspecified; I25.10 Atherosclerotic heart disease of native coronary artery without angina pectoris; N18.9 Chronic kidney disease, unspecified; I12.9 Hypertensive chronic kidney disease with stage 1 through stage 4 chronic kidney disease, or unspecified chronic kidney disease; M10.9 Gout, unspecified; F10.90 Alcohol use, unspecified, uncomplicated; E03.9 Hypothyroidism, unspecified; F12.90 Cannabis use, unspecified, uncomplicated; K21.9 Gastro-esophageal reflux disease without esophagitis; Z95.5 Presence of coronary angioplasty implant and graft; Z79.82 Long term (current) use of aspirin; Z79.890 Hormone replacement therapy
CPT/HCPCS: 71045; 80048; 80053; 83880; 84484; 85025; 85027; 85347; 85730; 93005; 93306; 93458; 96374; 96375; 99291; C1725; C1769; C1874; C1894; C9600; Q9950; Q9967

== ENCOUNTER 2024-04-20 17:43 | Outpatient (RCR) | payer MEDICARE, BC, SELFPAY | END 2024-04-20 23:59 | disposition home or self-care (01) | LOC: CRHB 17:43 | PROVIDERS: ATTENDING PHYSICIAN Internal Medicine Cardiovascular Disease | DX: I25.10 Atherosclerotic heart disease of native coronary artery without angina pectoris (principal); Z95.5 Presence of coronary angioplasty implant and graft; I25.2 Old myocardial infarction | CPT/HCPCS: G0422; G0423 ==

== ENCOUNTER 2024-05-20 17:22 | Outpatient (RCR) | payer MEDICARE, BC, SELFPAY | END 2024-05-20 23:59 | disposition home or self-care (01) | LOC: CRHB 17:22 | PROVIDERS: ATTENDING PHYSICIAN Internal Medicine Cardiovascular Disease | DX: I25.10 Atherosclerotic heart disease of native coronary artery without angina pectoris (principal); Z95.5 Presence of coronary angioplasty implant and graft; I25.2 Old myocardial infarction | CPT/HCPCS: G0422; G0423 ==

== ENCOUNTER 2024-06-03 17:18 | Outpatient (RCR) | payer MEDICARE, BC, SELFPAY | END 2024-06-03 23:59 | disposition home or self-care (01) | LOC: CRHB 17:18 | PROVIDERS: ATTENDING PHYSICIAN Internal Medicine Cardiovascular Disease | DX: I25.10 Atherosclerotic heart disease of native coronary artery without angina pectoris (principal); Z95.5 Presence of coronary angioplasty implant and graft; I25.2 Old myocardial infarction | CPT/HCPCS: G0422; G0423 ==

== ENCOUNTER 2024-07-22 17:00 | Outpatient (RCR) | payer MEDICARE, BC, SELFPAY | END 2024-07-22 23:59 | disposition home or self-care (01) | LOC: CRHB 17:00 | PROVIDERS: ATTENDING PHYSICIAN Internal Medicine Cardiovascular Disease | DX: I25.10 Atherosclerotic heart disease of native coronary artery without angina pectoris (principal); Z95.5 Presence of coronary angioplasty implant and graft; I25.2 Old myocardial infarction | CPT/HCPCS: G0422; G0423 ==

== ENCOUNTER 2024-07-27 17:00 | Outpatient (RCR) | payer MEDICARE, BC, SELFPAY | END 2024-07-27 17:30 | disposition home or self-care (01) | LOC: CRHB 17:00 | PROVIDERS: ATTENDING PHYSICIAN Internal Medicine Cardiovascular Disease; FAMILY PHYSICIAN Family Medicine | DX: I25.10 Atherosclerotic heart disease of native coronary artery without angina pectoris (principal); Z95.5 Presence of coronary angioplasty implant and graft; I25.2 Old myocardial infarction | CPT/HCPCS: G0422; G0423 ==